=== PATIENT | male | born 1990 | race African-American/Black ===

== ENCOUNTER 2023-11-29 22:30 | Inpatient (IN) | payer MEDICAID ==
[~2023-11-29] VITALS: Ht 182.9 cm; Wt 86.2 kg
[~2023-11-29 22:30] MED LIST: LEVO500T2 PO
[2023-11-29 22:34] VITALS: O2SAT 97
[2023-11-29] MEDS: MORPHINE SULFATE 4 MG/ML INJ (FOR IV/IM USE) IM ONE (23:00)
[2023-11-30 03:50] LABS: BASOPHILS % 0.4 % (0.0-2.0); DIFFERENTIAL COMMENT 0; EOSINOPHILS % 1.9 % (0.0-5.0); HEMATOCRIT. 41.7 % (42.0-52.0); HEMOGLOBIN. 14.3 g/dL (14.0-18.0); LYMPHOCYTES % 14.4 % (20.0-50.0); MEAN CORPUSCULAR HEMOGLOBIN 26.9 pg (28.0-32.0); MEAN CORPUSCULAR HGB CONC 34.3 g/dL (31.0-37.0); MEAN CORPUSCULAR VOLUME 78.6 fL (80.0-94.0); MEAN PLATELET VOLUME 8.1 fl (7.4-10.4); MONOCYTES % 10.8 % (2.0-8.0); NEUTROPHILS % 72.5 % (40.0-76.0); PLATELET 277 x1000/uL (130-400); RED CELL DISTRIBUTION WIDTH 13.5 % (11.6-14.6); WHITE BLOOD COUNT 10.4 x1000/uL (4.5-11.0)
[2023-11-30 03:57] LABS: CHLORIDE 108 mEq/L (98-107); POTASSIUM 3.4 mEq/L (3.5-5.1); SODIUM 140 mEq/L (136-145)
[2023-11-30 03:58] LABS: CARBON DIOXIDE 27 mEq/L (21-32)
[2023-11-30 03:59] LABS: CALCIUM 9.3 mg/dL (8.7-10.4)
[2023-11-30 04:03] LABS: CREATININE 0.9 mg/dL (0.6-1.3)
[2023-11-30 04:04] LABS: GLUCOSE 104 mg/dL (70-105); PROTHROMBIN TIME 10.9 sec (9.6-11.0); UREA NITROGEN BLOOD 6 mg/dL (9-23)
[2023-11-30] MEDS: HYDROCODONE/ACETAMINOPHEN 5/325MG TABLET PO ONE (05:30)
[2023-11-30 05:34] LABS: CLARITY URINE CLEAR (CLEAR); COLOR URINE YELLOW (YELLOW); GLUCOSE URINE NEGATIVE (NEGATIVE); KETONES URINE TRACE (NEGATIVE); LEUKOCYTE ESTERASE URINE 1+ (NEGATIVE); NITRITE URINE NEGATIVE (NEGATIVE); OCCULT BLOOD URINE NEGATIVE (NEGATIVE); PROTEIN URINE NEGATIVE (NEGATIVE); SPECIFIC GRAVITY URINE 1.018 (1.005-1.030)
[2023-11-30 05:54] LABS: RBC URINE 0-2 /hpf (0-2)
[2023-11-30 05:55] LABS: BACTERIA URINE 3+; SQUAMOUS EPITHELIAL CELL URINE FEW /lpf (RARE/1+)
[2023-11-30] MEDS ORDERED: NALOXONE HCL 0.4MG/ML VIAL IV PRN (09:00)
[2023-11-30] MEDS: HYDROCODONE/ACETAMINOPHEN 10/325MG TABLET PO PRN (11:21)
[2023-11-30] MEDS ORDERED: ACETAMINOPHEN 325MG TABLET PO PRN ×2 (12:15)
[2023-11-30] MEDS ORDERED: CLONIDINE 0.1MG TABLET PO PRN (12:15)
[2023-11-30] MEDS ORDERED: MAGNESIUM/ALUMINUM HYDROXIDE/SIMETHICONE 30ML UDC PO PRN (12:15)
[2023-11-30] MEDS ORDERED: ZOLPIDEM TARTRATE 5MG TABLET PO PRN (12:15)
[2023-11-30] MEDS: POTASSIUM CHLORIDE 20MEQ TABLET SR PO NR (12:44)
[2023-11-30] MEDS: ENOXAPARIN 40MG/0.4ML SYR SUBCUT SCH (18:06)
[2023-11-30] MEDS: LISINOPRIL 10MG TABLET PO SCH (21:33)
[2023-11-30] MEDS: OMEPRAZOLE 20MG CAPSULE EXTENDED RELEASE PO SCH (21:33)
[2023-11-30] MEDS: DOCUSATE SODIUM 100MG CAPSULE PO SCH (21:33)
[2023-11-30] MEDS: METOPROLOL TARTRATE 25MG TABLET PO SCH (21:33)
[2023-12-01] MEDS: TAMSULOSIN HCL 0.4MG SR CAPSULE PO SCH (10:23)
[2023-12-01] MEDS: FENOFIBRATE NANOCRYSTALLIZED 48MG TABLET PO SCH (10:23)
[2023-12-01 16:59] VITALS: BP 158/104; PULSE 86; RESP 20; TEMP 97.8
[2023-12-01 20:00] VITALS: BP 139/85; PULSE 93; RESP 20; TEMP 98.1
[2023-12-01] MEDS ORDERED: TAMS-11 PO (20:45)
[2023-12-01] MEDS ORDERED: FENO67CA13 PO (20:45)
[2023-12-01] MEDS ORDERED: METO25TA6 PO (20:45)
[2023-12-01] MEDS ORDERED: ONDA8TAB59 PO (20:45)
[2023-12-01] MEDS ORDERED: ACET325T52 PO (20:45)
[2023-12-01] MEDS ORDERED: OMEP20CA14 PO (20:45)
[2023-12-01] MEDS ORDERED: LISI20TA31 PO (20:45)
[2023-12-02 04:00] VITALS: BP 146/76; PULSE 91; RESP 18; TEMP 97.2
[2023-12-02 08:00] VITALS: BP 148/92; PULSE 93; RESP 18; TEMP 97.2
[2023-12-02] MEDS: FAMOTIDINE 20MG TABLET PO SCH (08:59)
[2023-12-02 12:00] VITALS: BP 143/81; PULSE 91; RESP 20; TEMP 98.6
[2023-12-02 16:00] VITALS: BP 145/93; PULSE 63; RESP 18; TEMP 97.9
[2023-12-02 20:00] VITALS: BP 139/89; PULSE 85; RESP 20; TEMP 96.1
[2023-12-03] VITALS: BP 155/84; PULSE 87; RESP 20; TEMP 98.4
[2023-12-03 04:00] VITALS: BP 128/87; PULSE 83; RESP 20; TEMP 97.5
[2023-12-03 08:00] VITALS: BP 153/98; PULSE 79; RESP 19; TEMP 96.6
[2023-12-03 12:00] VITALS: BP 152/92; PULSE 82; RESP 19; TEMP 97.2
[2023-12-03 16:00] VITALS: BP 117/73; PULSE 75; RESP 19; TEMP 97.3
[2023-12-03 20:00] VITALS: BP 163/78; PULSE 88; RESP 17; TEMP 99
[2023-12-04] VITALS: BP 160/74; PULSE 86; RESP 20; TEMP 98.3
[2023-12-04 04:00] VITALS: BP 149/80; PULSE 73; RESP 16; TEMP 97.7
[2023-12-04 08:00] VITALS: BP 153/97; PULSE 75; RESP 19; TEMP 97.3
[2023-12-04 12:00] VITALS: BP 150/92; PULSE 77; RESP 19; TEMP 97.5
[2023-12-04 16:00] VITALS: BP 143/80; PULSE 82; RESP 19; TEMP 97.7
[2023-12-04 20:00] VITALS: BP 157/89; PULSE 83; RESP 20; TEMP 99
[2023-12-05] VITALS: BP 158/96; PULSE 82; RESP 20; TEMP 98.8
[2023-12-05 04:00] VITALS: BP 152/87; PULSE 80; RESP 20; TEMP 98.4
[2023-12-05 08:00] VITALS: BP 141/79; PULSE 80; RESP 19; TEMP 97.9
[2023-12-05 12:00] VITALS: BP 103/63; PULSE 60; RESP 19; TEMP 97.9
[2023-12-05] MEDS ORDERED: NALOXONE HCL 0.4MG/ML VIAL IV PRN (13:15)
[2023-12-05 16:00] VITALS: BP 148/93; PULSE 83; RESP 20; TEMP 97.9
[2023-12-05] MEDS: HYDROCODONE/ACETAMINOPHEN 10/325MG TABLET PO PRN (17:33)
[2023-12-05 20:00] VITALS: BP 128/75; PULSE 79; RESP 18; TEMP 98.2
[2023-12-06] VITALS: BP 147/90; PULSE 84; RESP 19; TEMP 98.8
[2023-12-06 04:00] VITALS: BP 157/84; PULSE 81; RESP 20; TEMP 98.1
[2023-12-06 08:00] VITALS: BP 147/87; PULSE 88; RESP 19; TEMP 97.9
[2023-12-06 12:00] VITALS: BP 111/63; PULSE 71; RESP 19; TEMP 95.9
[2023-12-06 16:00] VITALS: BP 145/85; PULSE 81; RESP 19; TEMP 96.9
[2023-12-06 18:41] VITALS: BP 145/85; PULSE 81; RESP 19
== END 2023-12-06 20:11 | disposition short-term general hospital (02) | DRG 340 ==
LOC: ER 22:30 → 5WST 11-30 05:52 → EDBEDREQTM 11-30 06:10 → EDBEDREQ 11-30 06:10 → 6EST 12-01 12:18
PROVIDERS: ADMIT Internal Medicine; ATTEND Internal Medicine
DX: S72.092A Other fracture of head and neck of left femur, initial encounter for closed fracture (principal); E78.00 Pure hypercholesterolemia, unspecified; I10 Essential (primary) hypertension; W05.0XXA Fall from non-moving wheelchair, initial encounter; Z99.3 Dependence on wheelchair; K21.9 Gastro-esophageal reflux disease without esophagitis; Y93.89 Activity, other specified; Y92.89 Other specified places as the place of occurrence of the external cause; Y99.8 Other external cause status; Z93.3 Colostomy status
CPT/HCPCS: 36415; 73502; 73630; 74176; 80048; 81003; 85025; 86850; 86900; 87426; 99285; J1650